=== PATIENT | female | born 1955 | race Caucasian/White ===

== ENCOUNTER 2017-07-18 20:28 | Emergency (ER) | payer BC ==
--- NOTE | ~2017-07-18 | ER ---
PATIENT'S NAME: BELL [facility] AGE: 62 Y [address] ROOM: [place] [address] LOCATION: [facility] ADMIT DATE: 07/18/2017 ER/Outpatient Report DISCHARGE DATE: 07/18/2017 FAMILY PHYSICIAN: Jeffrey Chan MD ATTENDING PHYSICIAN: Wolfgang Ba TIME OF ARRIVAL: 2030 hours. TIME OF EXAM: 2035 hours. CHIEF COMPLAINT: Sore throat. HISTORY OF PRESENT ILLNESS: The patient states she has not felt well all day. She has had some sinus pressure, sore throat, fever, and chills. She denies having a cough. States she has just generalized body aches. ALLERGIES: NO KNOWN ALLERGIES. CURRENT MEDICATIONS: On her chart and were reviewed by me. PAST MEDICAL HISTORY: Chronic pancreatitis x3 years, hypertension. PAST SURGERIES: Bypass, cholecystectomy, and hysterectomy. SOCIAL HISTORY: She denies the use of tobacco, drugs, or alcohol. REVIEW OF SYSTEMS: Negative other than those mentioned in the HPI. PHYSICAL EXAMINATION: VITAL SIGNS: She weighs 80.6 kg. Blood pressure is 173/78, pulse of 84, respirations 18, temp of 101, tympanic, and O2 sat was 94% on room air. GENERAL: She is awake, alert, and oriented x4. SKIN: [place], warm, and dry. RESPIRATIONS: Even and nonlabored. TMs are pearly holly. Nasal is boggy. Oropharynx is injected posteriorly. No exudate is noted. PATIENT'S NAME: BELL [facility] AGE: 62 Y [address] ROOM: [place] [address] LOCATION: [facility] ADMIT DATE: 07/18/2017 ER/Outpatient Report DISCHARGE DATE: 07/18/2017 FAMILY PHYSICIAN: Jeffrey Chan MD ATTENDING PHYSICIAN: Wolfgang Ba NECK: Supple. No lymphadenopathy. LUNGS: Clear throughout. HEART: Regular rate and rhythm. EMERGENCY DEPARTMENT COURSE: The patient was given Zofran 4 mg ODT and Percocet 5/325 x1 tablet. LABORATORY DATA: CBC is within normal limits. Chem panel: Sodium is 141, potassium is 3.2, chloride is 107, her AST is 19 with an ALT of 25, amylase is 43, and lipase is 88. Lactate was 1.1. Procalcitonin was negative. Strep screen is negative. IMPRESSION: Viral upper respiratory infection. PLAN: Home, rest, and fluids. Take her Percocet as ordered and ibuprofen as needed. Follow up with her primary provider in the next 2 or 3 days if symptoms persist or worsen. She verbalized understanding. YESSY VALDEZ APRN FOR MD JONATAN MCCABE/leightonl /[id number] d: 07/19/17511 t: 07/20/17 1500, OUTPATIENT REPORT
[2017-07-18 21:23] LABS: BASOPHIL # 0.1 K/uL (0.0-0.2); BASOPHIL % 0.7 %; EOSINOPHIL % 0.1 %; HEMATOCRIT 40.3 % (33.0-46.0); HEMOGLOBIN 13.8 g/dL (10.0-15.0); IMMATURE GRANULOCYTE % 0.3 %; LYMPHOCYTE # 1.1 K/uL (0.8-4.0); LYMPHOCYTE % 10.6 %; MCH 29.7 pg (27.0-34.0); MCHC 34.2 gm/dL (32.0-36.5); MCV 86.7 fl (83.0-98.0); MONOCYTE # 0.8 K/uL (0.0-1.0); MONOCYTE % 7.6 %; MPV 10.7 fl (9.4-12.4); NEUTROPHIL # (ANC) 8.5 K/uL (1.8-7.8); NEUTROPHIL % 80.7 %; NRBC % 0 /100WBC (0-0.00); PLATELET COUNT 236 K/uL (150-450); RBC 4.65 M/uL (3.50-5.50); RDW-CV 12.3 % (11.9-14.6); WBC 10.5 K/uL (4.0-11.0)
[2017-07-18 21:40] LABS: ALBUMIN 3.6 gm/dL (3.5-5.0); ANION GAP 11.2 (10.0-19.0); CALCIUM 8.6 mg/dL (8.5-10.5); CREATININE 0.9 mg/dL (0.5-1.1); POTASSIUM 3.2 mMol/L (3.7-5.1); TOTAL BILIRUBIN 1.1 mg/dL (0.0-1.5); TOTAL PROTEIN 7.3 g/dL (6.0-8.4)
== END 2017-07-18 22:03 | disposition disaster alternative care site (69) ==
LOC: GMED 20:28
PROVIDERS: Emergency Medicine
DX: J06.9 Acute upper respiratory infection, unspecified (principal); I10 Essential (primary) hypertension; Z79.899 Other long term (current) drug therapy